=== PATIENT | female | born 1950 | race Caucasian/White ===

== ENCOUNTER → 2023-07-16 07:51 | Outpatient (REF) | payer OTHER, SELFPAY | LOC: HWRAD 07:51 | PROVIDERS: ATTENDING PHYSICIAN Nurse Practitioner Adult Health | DX: R59.9 Enlarged lymph nodes, unspecified (principal) | CPT/HCPCS: 76536 ==

== ENCOUNTER → 2024-02-17 10:39 | Outpatient (REF) | payer OTHER, SELFPAY | LOC: HWWDC 10:39 | PROVIDERS: ATTENDING PHYSICIAN Nurse Practitioner Adult Health | DX: Z12.31 Encounter for screening mammogram for malignant neoplasm of breast (principal) | CPT/HCPCS: 77063; 77067 ==

== ENCOUNTER 2024-02-25 01:05 | Observation (INO) | payer OTHER, SELFPAY ==
[2024-02-24 20:51] VITALS: BP 234/143
[2024-02-24 21:00] LABS: Glucose - Point of Care 121 mg/dl (70-99)
[2024-02-24 21:28] VITALS: BP 207/106
[2024-02-24 21:41] LABS: % Basophils 0.9 % (0-2); % Eosinophils 1.7 % (0-6); % Immature Granulocytes 0.3 % (0-0.5); % Lymphocytes 13.2 % (20.5-51.1); % Monocytes 11.2 % (1.7-9.3); % Neutrophils 72.7 % (42.2-75.2); Absolute Basophils 0.1 10^3/uL (0-0.2); Absolute Eosinophils 0.1 10^3/uL (0-0.7); Absolute Monocytes 0.9 10^3/uL (0.1-0.6); Absolute Neutrophils 5.7 10^3/uL (1.4-6.5); Hemoglobin 10.6 g/dL (12.0-16.0); Mean Corp Hgb Conc. 33.1 g/dL (33.0-37.0); Mean Corpuscular Hgb 28.4 pg (27.0-31.0); Mean Corpuscular Volume 85.8 fL (81.0-99.0); Mean Platelet Volume 9.1 fL (7.4-10.4); Nucleated Red Blood Cells % 0 %; Platelet Count 343 10^3/uL (130-400); Red Blood Cell Count 3.73 10^6/uL (4.20-5.40); Red Cell Dist. Width 13.2 % (11.5-14.5); White Blood Cell Count 7.8 10^3/uL (4.8-10.8)
[2024-02-24 21:45] VITALS: BP 186/95
[2024-02-24 22:00] VITALS: BP 185/84
[2024-02-24 22:03] LABS: ALT (SGPT) 17 U/L (0-35); AST (SGOT) 40 U/L (14-36); Albumin 4.8 g/dl (3.5-5.0); Alkaline Phosphatase 93 U/L (38-126); Blood Urea Nitrogen 21 mg/dl (7-17); Calcium 9.5 mg/dl (8.4-10.2); Carbon Dioxide 24 mmol/L (22-30); Chloride 104 mmol/L (98-107); Glucose 100 mg/dl (70-99); Magnesium 1.9 mg/dl (1.6-2.3); Potassium 4.2 mmol/L (3.5-5.1); Sodium 143 mmol/L (135-145); Total Bilirubin 0.4 mg/dl (0.2-1.3); Total Protein 7.8 g/dl (6.3-8.2); eGFR > 60.00
[2024-02-24 22:07] LABS: COVID-19 Antigen Negative (Negative); Troponin I < 0.012 ng/ml
--- NOTE | 2024-02-24 22:14 | ED.GENMED ---
History of Present Illness
General
Chief Complaint: Fatigue
Source: patient and family (Daughter)
Exam Limitations: none
Time Seen by Provider: 02/24/24 21:21
Nursing documentation reviewed up to this point in time: agreed with
History of Present Illness
History of Present Illness:
73-year-old female with past medical history as documented notable for COPD, hypertension, hyperlipidemia who presents to the emergency room for evaluation of generalized weakness. Patient reports that over the past 2 to 3 days she has had
generalized malaise�she describes feeling 'tired, no energy.' She says that tonight she was sitting on the couch and had abrupt onset of severe generalized weakness. She says that she was weak all over and felt uncomfortable walking down the
stairs. She says that this lasted about 30 minutes and then resolved and she feels much better now. She says she did not have any associated chest pain. She says she did not have any shortness of breath. She did not feel sweaty or nauseated.
She has had mild runny nose denies any recent coughing. Denies any fevers or chills recently. She has not had any dysuria, hematuria, change in urinary frequency. No diarrhea or vomiting and no abdominal pain. She does report that her neighbors
are sick. She currently lives independently in the community, ambulates without assistance and is independent for ADLs.
Past History
Past History
ED Past Medical History: COPD
ED Past Surgical History: Brain (brain aneurysm repair) and Other (Pneumothorax, Blebs removed from lung 2009)
Social History
Tobacco: Former smoker
Living: with family
Review of Systems
Review of Systems
All Other Systems: ROS reviewed and negative except as documented in HPI and ROS
Constitutional: Reports fatigue; Denies fever or chills
EENT: Reports runny nose; Denies sore throat
Respiratory: Denies cough or trouble breathing
Cardiac: Denies chest pain, palpitations or syncope
ABD/GI: Denies abdominal pain, nausea, vomiting or diarrhea
: Denies dysuria, frequency or flank pain
Musculoskeletal: Denies neck pain or back pain
Neurological: Reports weakness (Generalized); Denies dizzy, headache or numbness
Phy Exam
Physical Exam
Physical Exam:
General: Awake, alert, oriented x3; no acute distress
Head: Normocephalic, atraumatic
Eyes: Conjunctiva normal, sclera anicteric
Throat: Airway intact, handling secretions
Neck: Trachea midline, supple without meningismus
Lungs: Clear to auscultation bilaterally, no wheezing, rales, rhonchi
Heart: Regular rate and rhythm, no murmurs, gallops, or rubs
Abd: Soft, non distended, nontender
Neuro: Cranial nerves intact, speech fluid, no motor or sensory deficits
Skin: no rash
Extremities: No edema in extremities, equal pulses in all extremities
Scores
Heart Failure Risk
Heart Failure Risk Score: Not Applicable
Heart Score for Chest Pain Patients
STEMI patient?: Not applicable
Withdrawal Assessment of Alcohol
Withdrawal Assessment Completed?: Not applicable
Course
Orders/Labs/Results
Orders:
Orders
02/24/24 20:56
ECG [Electrocardiogram (*1)] Urgent
Reason for Study: Fatigue / Weakness
02/24/24 20:57
EKG- Treatment ONCE
02/24/24 21:35
COVID-19 Antigen Urgent
Source: Nasal Swab
Complete Blood Count/With Diff Urgent
Comprehensive Metabolic Panel Urgent
Magnesium Urgent
Troponin I Urgent
02/24/24 21:42
CR Chest - 2 Views Urgent
Comment:
Reason For Exam: weakness, fatigue--eval for pna
02/24/24 21:45
Influenza A+B Rapid Molecular Urgent
CHRISTY Source: Nasal Swab
Specimen Description:
02/24/24 22:44
CT Head W/o Iv Contrast Urgent
Comment:
Reason For Exam: severe hypertension, weakness
02/24/24 23:08
Electrocardiogram (*1) Urgent
Reason for Study: Fatigue / Weakness
EKG- Treatment ONCE
02/24/24 23:14
Urinalysis Reflex To Culture Urgent
Date Specimen was Collected: 02/24/24
Time Specimen was Collected: 22:54
02/25/24 00:30
Troponin I Urgent
Abnormal Lab Results
02/24/24 02/24/24
20:59 21:35
RBC 3.73 L 10^6/uL
(4.20-5.40)
Hgb 10.6 L g/dL
(12.0-16.0)
Hct 32.0 L %
(37.0-47.0)
Absolute Lymphs (auto) 1.0 L 10^3/uL
(1.2-3.4)
Absolute Monos (auto) 0.9 H 10^3/uL
(0.1-0.6)
Lymphocytes % 13.2 L %
(20.5-51.1)
Monocytes % 11.2 H %
(1.7-9.3)
BUN 21 H mg/dl
(7-17)
Glucose 100 H mg/dl
(70-99)
AST 40 H U/L
(14-36)
POC Glucose 121 H mg/dl
(70-99)
02/24/24 21:35
02/24/24 21:35
Vital Signs
Initial and Last Documented VS:
Initial Vital Signs
Temp Pulse Resp BP Pulse Ox
36.8 C 107 20 234/143 96
02/24/24 20:51 02/24/24 20:51 02/24/24 20:51 02/24/24 20:51 02/24/24 20:51
Last Documented Vital Signs
Temp Pulse Resp BP Pulse Ox
36.8 C 82 14 173/88 93
02/24/24 20:51 02/24/24 22:15 02/24/24 22:15 02/24/24 22:15 02/24/24 22:15
MDM/Problems Addressed
Differential Diagnosis Includes:
Differential diagnosis for generalized weakness is wide�but she has had generalized weakness for the past 2 to 3 days and then had an acute worsening for about 30 minutes tonight; differential could include viral syndrome, anemia, electrolyte
derangement, infection such as UTI or pneumonia, anginal equivalent, dysrhythmia, hypoglycemia among other things; low suspicion for stroke with generalized weakness but no focal symptoms
MDM/Problems Addressed:
73-year-old female presents for evaluation of malaise for the past few days with sudden worsening for about 30 minutes tonight. Symptoms have since resolved�still feels slightly more tired than her usual self but not as severe as 30-minute acute
episode where she felt so fatigued/weak that she was afraid to walk downstairs. She arrived to the emergency room severely hypertensive with a blood pressure of 234/143�this quickly improved to a blood pressure of 185/84 by my assessment. She was
tachycardic in triage to 107 again improved to 79 on recheck when she was brought back to a room. Rest of vitals are normal. Physical exam as above. Her EKG shows sinus rhythm with some lateral ST depressions and some subtle scooping of the ST
segments. Will place an IV send labs including CBC and a CMP. Check troponins. Check COVID and flu swabs. Will check chest x-ray and urinalysis. Check CT head given severe hypertension. Will monitor her on telemetry. Reassess after the above.
Initial labs reviewed: CBC shows stable anemia, CMP no clinically significant abnormalities. Troponin undetectable x 1�will trend repeat. COVID and flu negative. CT head reviewed by me no acute pathology. Chest x-ray reviewed by me unremarkable.
Concern with the abrupt onset of this episode combined with abnormal EKG that this could potentially be anginal equivalent. Will admit for trending of troponins, cardiology consultation. Monitor blood pressure overnight. Case discussed with
hospitalist.
Acute Exacerbation and/or Progression of Chronic Illness:
Acutely hypertensive improved without intervention continue to monitor but no emergent antihypertensives indicated
Acute Exacerbation and/or Progression of Chronic Illness: HTN
*Radiology
Radiology exam reviewed: preliminary read by ED provider
*Pulse Oximetry
Patient hypoxic: no
*EKG
Interpreted by ED Provider?: Yes
Heart Rate: 95
Rate: normal
Rhythm: sinus
[place]: normal axis
Interval: normal interval
QRS Pattern: normal QRS
Ischemia: non-specific ST changes
*Critical Care Note
Total Time (30-74mins, 75-104mins- exclusive of procedures): Not Applicable
Data Reviewed
Review of Other/Old Records Reveals: Labs and Records
Source: patient, records and family
Patient Management
Discussion with other providers: Hospitalist (Discussed with hospitalist)
Escalation/DeEscalation of care consider admission/obs:
Admission indicated
ED Attending Note
-
Portions of this chart may have been created with voice recognition software.� Occasional wrong word or��sound alike� substitutions may have occurred due to the inherent limitations of voice recognition software.
Discharge Plan
Departure
Patient Disposition: Admit
Date of Disposition: 02/24/24
Time of Disposition: 23:29
Admit to doctor: Devin
Presentation/result/management discussed w/ accepting MD/DO: Hospitalist
Discharge Problem:
Abnormal EKG, Weakness, Hypertensive urgency
Prescriptions:
No Action
pravastatin [Pravachol] 40 MG tablet
40 mg PO HS
tiotropium bromide [Spiriva with HandiHaler] 18 MCG capsule, w/inhalation device
18 mcg IH DAILY
psyllium husk (aspartame) [Metamucil Fiber Singles] 1 PACKET powder in packet
1 packet PO DAILY
aspirin 81 MG tablet,delayed release (DR/EC)
81 mg PO DAILY
pantoprazole 40 MG tablet,delayed release (DR/EC)
40 mg PO BID Qty: 60 0RF
Referrals:
Radha Carpenter CRNP [Family Provider] -
Interventions
Interventions:
*Risk Screen - Suicide Last Done: 02/24/24 21:34
*General Assessment Last Done: 02/24/24 20:51
*Neglect/Abuse Screening Last Done: 02/24/24 21:34
ED- Fall Risk Assessment Last Done: 02/24/24 21:37
*ED COVID-19 Vaccine History Last Done: 02/24/24 21:34
Discharge Date and Time
Print Language: KAZAKH
[2024-02-24 22:15] VITALS: BP 173/88
[2024-02-24 23:33] LABS: Urine Albumin Trace (Neg - Trace); Urine Bilirubin Negative (Negative); Urine Character Clear (Clear); Urine Color Yellow; Urine Glucose Negative (Negative); Urine Ketone Negative (Negative); Urine Leukocyte Trace (Negative); Urine Nitrite Negative (Negative); Urine Occult Blood Negative (Negative); Urine Urobilinogen Negative (Neg - 1+)
[2024-02-25] VITALS (24 sets, daily range): BP systolic 113–225; BP diastolic 51–171; BMI 26.6; BMI 26.5
[2024-02-25 00:09] LABS: Urine Bacteria Few (Negative); Urine Red Blood Cell 0-2 /HPF (0-2); Urine Squamous Cell >30 /LPF (Few)
--- NOTE | 2024-02-25 00:44 | HPS.HSE ---
Family Physician
-
Family Physician: Radha Carpenter
Chief Complaint
-
Weakness
History of Present Illness
Patient is a 73y F with PMH significant for COPD, Takotsubo's Cardiomyopathy and hypertension who presents to ED complaining of abrupt onset of 'weakness in my chest' this evening. Patient states that she was seated watching TV when she had
onset of this sensation. She denies any chest pain or pressure. No SOB. No N/V, diaphoresis, lightheadedness or dizziness. She has difficulty describing the sensation. Patient notes that she felt fatigued for the past week. No focal / specific
symptoms including fevers / chills, cough, GI or complaints.
On arrival to the ED, patient was significantly hypertensive with BP = 243/143. This has improved to 173/88 with no specific intervention.
Patient is currently resting comfortably in the ED and has no complaints.
Relevant recent history includes mammogram that was completed earlier today.
Patient states that she slept poorly last PM worrying about this and that she gets very anxious about having these done due to the discomfort, etc.
Medical History
Past Medical History
Past Medical History: Reports Other
Additional Past Medical History:
Hypertension
Cerebral Aneurysms
COPD
Spontaneous Pneumothorax x 3
Takotsubo's Cardiomyopathy (2010)
GERD
Past Surgical History: Reports Other
Additional Past Surgical History:
Aneurysm Coil
Craniotomy / Aneurysm Repair
ALMA Bleb Resection
Oophorectomy
Cardiac Cath - Normal Coronaries (2010)
Social History
Tobacco: Former Smoker (Quit smoking in 2008. Approx 40 pack years total use.)
Alcohol: Occasional
Family History
Family History: Other (Father: CAD Mother: HTN, DM)
Allergies / Home Medications
Allergies reflects when Allergies were last updated in [employer].
Home Medications with original date entered in [employer]
Allergy/Medication List:
Allergies
Allergy/AdvReac Type Severity Reaction Status Date / Time
No Known Allergies Allergy Verified 02/24/24 20:51
Home Medications
acetaminophen 500 mg tablet (Tylenol Extra Strength) 1,000 mg PO Q6HPRN PRN mild pain 02/24/24
calcium carbonate 1,000 mg PO DAILY 02/24/24
lisinopril 20 mg tablet 20 mg PO DAILY 02/24/24
pantoprazole 40 mg tablet,delayed release 40 mg PO DAILY 02/24/24
pravastatin 80 mg tablet 80 mg PO HS 02/24/24
therapeutic multivitamin 1 tab PO DAILY 02/24/24
tiotropium 2.5 mcg-olodaterol 2.5 mcg/actuation mist for inhalation (Stiolto Respimat) 2 puff inhalation R DAILY 02/24/24
Review of Systems
-
History Source: Patient
A 12 point ROS was completed and negative except as noted: Yes
Constitutional: Reports Fatigue; Denies Fever or Chills
EENT: Denies Sore Throat
Respiratory: Denies Cough or Trouble Breathing
Cardiac: Denies Chest Pain, Diaphoresis, Palpitations or Syncope
Abdomen/GI: Denies Abdominal Pain, Nausea, Vomiting or Diarrhea
: Denies Dysuria, Frequency or Flank Pain
Musculoskeletal: Denies Joint Pain or Edema
Neurological: Denies Dizzy or Headache
Psych: Reports Anxiety; Denies Depression
Physical Exam
Vital Signs
Vital Signs
Temp Pulse Resp BP Pulse Ox
98.3 F 82 14 173/88 93
02/24/24 20:51 02/24/24 22:15 02/24/24 22:15 02/24/24 22:15 02/24/24 22:15
Physical Exam
General: Other (73y F in no distress.)
HEENT: Moist mucous membranes
Respiratory: Clear; No Wheezes, Rales or Rhonchi
Cardiac: S1/S2, Regular Rhythm and Murmur (II/ ABRIL)
GI: Soft, Non Tender, Non Distended and Normal Bowel Sounds
Musculoskeletal: No Clubbing, No Cyanosis and No Edema
Neuro: AO x 3
Laboratory Results
-
02/24/24 21:35
02/24/24 21:35
Laboratory Results
Total Bilirubin 0.4 mg/dl (0.2-1.3) 02/24/24 21:35
AST 40 U/L (14-36) H 02/24/24 21:35
ALT 17 U/L (0-35) 02/24/24 21:35
Alkaline Phosphatase 93 U/L (38-126) 02/24/24:35
Troponin I < 0.012 ng/ml 02/24/24 21:35
Impression/Plan
-
A/P: Patient is a 73y F with PMH significant for COPD, Takotsubo's Cardiomyopathy and HTN who presents to ED complaining of 'weakness in the chest'.
Atypical Chest Discomfort
- Observe overnight for further evaluation and treatment.
- Initial EKG with non-specific ST changes in the lateral leads.
- Not present on most recent EKG - but patient has had similar changes morphology in the past.
- Patient is symptom-free at present in the ED.
- Initial troponin is undetectable.
- Follow x 3 sets total or to peak.
- Follow for any new / recurrent symptoms.
- Consider Cardiology evaluation if abnormal troponin, new EKG changes or any recurrent symptoms.
Hypertension
- Suspect that this evening's symptoms were related to marked hypertension.
- This improved significantly in the ED without intervention.
- Continue outpatient lisinopril.
- Add metoprolol BID for now and adjust regimen as needed for adequate control.
- IV Hydralazine as needed for very high BP.
COPD
- Stable. No complaints of cough, dyspnea, etc.
- Continue inhaled medications and follow for any changes.
Takotsubo's Cardiomyopathy
- In 2010. Most recent Echo (11/2022) was unremarkable with recovered EF.
Normocytic Anemia
- Unknown chronicity or etiology with no recent labs available for comparison.
- Check iron studies, B12, etc.
- No reported / noted blood loss per patient.
- Follow for changes in H&H.
DVT Prophylaxis: Lovenox
Code Status: Full
[2024-02-25 01:02] LABS: Troponin I 0.036 ng/ml
[2024-02-25] MEDS: APRESOLINE 5 MG IV ×2 (02:09→14:18)
--- NOTE | 2024-02-25 03:33 | PTCARENOTE ---
Received patient from ED financial administration officer. patient states she never had chest pain, rather weakness that is 'hard to explain'. Patients manual blood pressure was 224/94. messaged CRP. PRN hydralazine administered by this RN. Recheck blood pressure 185/86.
Patient resting in bed.
--- NOTE | 2024-02-25 03:41 | PTCARENOTE ---
Received patient from ED. patient states she never had chest pain, rather weakness that is 'hard to explain'. Patients manual blood pressure was 224/94. messaged CRP. PRN hydralazine administered by this RN. Recheck blood pressure 185/86. Patient
resting in bed.
[2024-02-25] MEDS: STRIVERDI RESPIMAT 2 PUFF INH (07:59)
[2024-02-25] MEDS: SPIRIVA RESPIMAT 2.5 MCG 2 PUFF INH (08:00)
[2024-02-25] MEDS: ZESTRIL 20 MG PO (08:15)
[2024-02-25] MEDS: PROTONIX 40 MG PO (08:15)
[2024-02-25] MEDS: TOPROL XL 25 MG PO ×2 (08:15→20:14)
[2024-02-25] MEDS: LOW STRENGTH ASPIRIN 81 MG PO (08:15)
[2024-02-25 08:20] LABS: Hematocrit 33.1 % (37.0-47.0); Mean Corp Hgb Conc. 33.2 g/dL (33.0-37.0); Mean Corpuscular Volume 87.3 fL (81.0-99.0); Red Blood Cell Count 3.79 10^6/uL (4.20-5.40); Red Cell Dist. Width 13.2 % (11.5-14.5); Troponin I 0.104 ng/ml; White Blood Cell Count 7.1 10^3/uL (4.8-10.8)
[2024-02-25 08:39] LABS: Blood Urea Nitrogen 17 mg/dl (7-17); Calcium 9.6 mg/dl (8.4-10.2); Carbon Dioxide 24 mmol/L (22-30); Chloride 105 mmol/L (98-107); Estimated Creatinine Clearance 49 ml/min; Glucose 103 mg/dl (70-99); HDL Cholesterol 84 mg/dl; Iron 23 ug/dl (37-170); LDL Cholesterol, Calculated 66 mg/dl; Potassium 4.5 mmol/L (3.5-5.1); Sodium 144 mmol/L (135-145); Total Cholesterol 163 mg/dl (50-199); Triglyceride 67 mg/dl (10-149); Very Low Density Lipoprotein 13 mg/dl (0-30); eGFR > 60.00
--- NOTE | 2024-02-25 08:47 | CON.CAR ---
Addendum entered and electronically signed by Jorje Ricketts MD 02/25/24 14:40:
I saw and examined the patient.
The Capacity Planning Manager's note was reviewed and I agree with the note.
Comment: Briefly, 73-year-old woman past medical history of nonischemic cardiomyopathy with recovered ejection fraction, pulmonic stenosis, hypertension, COPD who presented following an episode of weakness found to be hypertensive with rising
troponin.
At the time of my evaluation this morning the patient was not reporting any chest pain or pressure and no dyspnea
We reviewed that her troponin was uptrending
ECG with subtle ST depressions
Transthoracic echocardiogram today with normal left ventricular function and no obvious segmental wall motion abnormalities
Will refer for left heart catheterization given elevated troponin to assess for obstructive coronary disease as a cause of her symptoms
Original Note:
Consultation
Consultation Request
Date/Time Consultation Performed: 02/25/24
Requesting Provider: Dr. Sandeep Squires
Performing Provider: Tita Price PA-C for Dr. Ricketts
Reason for Consultation: elevated troponin
Medical History
-
Chief Complaint: weakness, hypertension
History of Present Illness:
Patient is a 73-year-old female with past medical history of remote Takotsubo cardiomyopathy with subsequent recovery in EF, pulmonary stenosis, hypertension, hypercholesterolemia, history of cerebral aneurysms resulting in craniotomy in 1998, COPD,
history of pneumothorax from bleb treated with pleurodesis, CKD stage III A who presented to [facility] due to generalized weakness. She reports yesterday she was resting watching TV when she became profoundly weak everywhere all of a
sudden. She reports she came to the ER for evaluation. Her blood pressure was noted to be very high on arrival. She reports she presented like this when she was initially diagnosed with hypertension, resulting in her being started on lisinopril.
She reports since then her blood pressures have been relatively well-controlled. Initial troponin negative, however now up to 0.1. Cardiology consulted for evaluation. No reports of chest pain, shortness of breath, palpitations, lightheadedness
or dizziness. She reports her activity has not been limited as an outpatient, although at baseline is not very strenuous. Denies recent NSAIDS, decongestants, new meds or supplements, changes in diet.
PMH:
Remote Takotsubo cardiomyopathy 2010 with subsequent recovery in EF by echo
Pulmonary regurgitation, mild
Hypertension
Hypercholesterolemia
History of cerebral aneurysms resulting in craniotomy in 1998
COPD
History of pneumothorax from bleb treated with pleurodesis
CKD stage III A
Past Medical History
Past Medical History: Other (in HPI)
Social History
Tobacco: Former Smoker
Alcohol: Other (2-3 beers on Fridays)
Living: Alone
Employment: Retired
Family History
Family History: Other (CVA in sister)
Allergies / Home Medications
Allergy/AdvReac Type Severity Reaction Status Date / Time
No Known Allergies Allergy Verified 02/24/24 20:51
�Medication �Instructions �Recorded �Confirmed �Type
acetaminophen 500 mg tablet 1,000 mg PO Q6HPRN PRN mild pain 02/24/24 02/24/24 History
(Tylenol Extra Strength)
calcium carbonate 1,000 mg PO DAILY 02/24/24 02/24/24 History
lisinopril 20 mg tablet 20 mg PO DAILY 02/24/24 02/24/24 History
pantoprazole 40 mg tablet,delayed 40 mg PO DAILY 02/24/24 02/24/24 History
release
pravastatin 80 mg tablet 80 mg PO HS 02/24/24 02/24/24 History
therapeutic multivitamin 1 tab PO DAILY 02/24/24 02/24/24 History
tiotropium 2.5 mcg-olodaterol 2.5 2 puff inhalation R DAILY 02/24/24 02/24/24 History
mcg/actuation mist for inhalation
(Stiolto Respimat)
Review of Systems
-
History Source: Patient
All other systems: Negative unless noted
Physical Exam
Vital Signs
Temp Pulse Resp BP Pulse Ox
98.6 F 89 16 185/86 95
02/25/24 03:18 02/25/24 08:09 02/25/24 08:09 02/25/24 03:18 02/25/24 08:09
Lab Results
02/25/24 07:25
02/25/24 07:25
Troponin I 0.104 ng/ml H* D 02/25/24 07:25
Physical Exam
General: No Apparent Distress and Comfortable
HEENT: Normocephalic, Anicteric and Moist Mucous Membranes
Respiratory: Clear and Non Labored Respirations
Cardiac: S1/S2, Regular Rhythm and Other (tachycardic at times)
GI: Soft, Non Tender, Non Distended and Normal Bowel Sounds
Musculoskeletal: No Clubbing, No Cyanosis and No Edema
Skin: Warm and Dry
Neuro: AO x 3
Impression / Plan
-
Primary Tech Brazer Tester: Dr. EMMA Liao
Assessment:
Presentation with acute onset of diffuse weakness
Elevated troponin
Hypertensive emergency
Sinus tachycardia
Remote Takotsubo cardiomyopathy 2010 with subsequent recovery in EF by echo
Pulmonary regurgitation, mild
Hypertension
Hypercholesterolemia
History of cerebral aneurysms s/p clipping and coiling with left craniotomy in 1998
COPD
History of pneumothorax from bleb treated with pleurodesis
CKD stage III A
Anemia
ECHO 12/17/22: EF 55 to 60%, mild concentric LVH, dilated pulmonary artery measuring 4.6 cm, mild [place]
Plan:
-Patient presents with acute onset of diffuse weakness
-head CT negative for acute abnormalities
-On arrival noted to be markedly hypertensive
-Troponin uptrending, most recent 0.1. Patient without complaints of chest discomfort or shortness of breath. Trend to peak
-EKGs SR with NSSTS
-CXR without acute pulm abnormality
-Check urgent echo given history of remote Takotsubo cardiomyopathy. She reports in past echo caused her significant discomfort
-Consider cardiac catheterization this admission, last from 2010 with nonobstructive coronary atherosclerosis and findings consistent with apical ballooning syndrome or Takotsubo cardiomyopathy. NPO for now
-also noted to have sinus tachycardia on review of tele. toprol 25mg BID added by primary service. IV lopressor PRN ordered by me
-continue asa
-check CVE. continue pravastatin
-continue OP lisinopril
-consider evaluation to rule out PE as could be alternative etiology of patient symptoms
Data Reviewed
-
EKG: Tracing Personally Visualized and interpreted
Radiology: Report Reviewed by me
CT Scan: Report Reviewed by me
Medical Tests (Nuc Med, Echo etc): Report Reviewed by me
Labs: Labs Reviewed by me
Old Records: Reviewed
[2024-02-25 08:49] LABS: Percent Saturation 5 % (20-50); Total Iron Binding Capacity 393 ug/dl (265-497)
[2024-02-25 09:01] LABS: TSH Reflex To Free T4 1.57 uIU/ml (0.47-4.68)
[2024-02-25 09:19] LABS: Hepatitis C Antibody Negative (Negative)
[2024-02-25 09:20] LABS: Vitamin B12 900 pg/ml (239-931)
--- NOTE | 2024-02-25 09:45 | CARDSERVLU ---
Echocardiogram with Lumason completed after protocol screening completed. Allergies verified.
Patent IV site: __existing site 22P L hand___
IV site flushed with 0.9% NaCl pre and post administration.
Diluted bolus method utilized to enhance visualization of ventricular newsome.
Total volume given: _2.5___ mL
Patient tolerated all procedures well without complications.
[2024-02-25] MEDS: LOPRESSOR 5 MG IV (11:34)
[2024-02-25] MEDS: LOW STRENGTH ASPIRIN 324 MG PO (11:43)
[2024-02-25 13:03] LABS: ACT-LR - POC 261 Seconds (116-155)
--- NOTE | 2024-02-25 13:22 | ITS.CL.CATH ---
Computer Lab Aide - Catheterization
Cardiac Catheterization
Procedure Report:
LEFT HEART CATHETERIZATION
Date of Procedure: February 25, 2024
Referring: Dr. Jorje Ricketts
PROCEDURES:
1. Left heart catheterization with coronary and single-plane left ventriculography
2. Hemodynamic assessment of LAD and diagonal with [place] Omni wire. The IFR in both vessels measured above the ischemic threshold as described below
INDICATION: This is a 73-year-old female with a past medical history notable for a Takotsubo's cardiomyopathy, pulmonic valve stenosis, hypertension, and hyperlipidemia. She presented to [facility] for evaluation of generalized weakness
and was noted to have mildly elevated troponin for which she is now referred for coronary angiography
ACCESS: Right common femoral artery, 6 Finnish sheath. No palpable pulse in the right radial artery and the left radial artery has peripheral IV access and is a very difficult IV stick. Therefore, the decision was made to proceed with accessing the
right common femoral artery using ultrasound guidance and a 6 Finnish sheath was placed
HEMODYNAMICS : (mmHg)
AO (s/d) : 189/86, 129
LV (s/d) : 190/16
LVEDP : 25
CORONARY FINDINGS
DOMINANCE: Right
LEFT MAIN: Normal
LEFT ANTERIOR DESCENDING: The LAD is a moderate caliber vessel that arises normally from the left main and runs in the anterior interventricular groove. The mid LAD near the origin of the first diagonal branch has an eccentric calcified plaque.
The LAD tapers to a smaller caliber vessel as it approaches the apex. No focal high-grade obstructive stenosis is noted. The mid LAD beyond the large first diagonal branch has a 30% stenosis. The iFR in the distal LAD measures above the ischemic
threshold at 0.96 x 3. The Omni wire was redirected into the first diagonal branch and the iFR serially measured above the ischemic threshold at 0.94, 0.95, 0.95
CIRCUMFLEX: The circumflex is a medium caliber nondominant vessel that supplies a single sizable obtuse marginal branch that bifurcates in its midportion to 2 medium caliber obtuse marginal branches.
RIGHT CORONARY ARTERY: The right coronary artery is a very large caliber dominant vessel that is widely patent. The PDA is a large supplying the majority of the inferior wall to the inferior apex. The posterolateral branch is a medium caliber
vessel.
VENTRICULOGRAPHY: Left ventriculography is performed in an MACDONALD projection. The digital single-plane left ventricular ejection fraction is visually estimated at 65% with focal apical hypokinesis noted
HEMODYNAMIC ASSESSMENT OF THE LAD AND DIAGONAL WITH A [employer] OMNI WIRE: The origin of the left main was cannulated with a 6 Fr JL 4 guide catheter. Intravenous heparin was administered and the ACT was followed during the procedure. Two hundred
micrograms of intracoronary nitroglycerin was given through the guide catheter. A [place] Omni wire was advanced to the guide catheter tip and normalized to guide catheter pressure. The Omni wire was then carefully manipulated across the stenosis
in the mid LAD and into the distal vessel with the iFR serially measuring above the ischemic threshold at 0.96, 0.96, and 0.96. The Omni wire was withdrawn and redirected to a large first diagonal branch where the iFR serially measured above the
ischemic threshold at 0.94, 0.95, and 0.95. The Omni wire was then withdrawn to the guide catheter tip where the resting Pd/Pa measured 0.99.
RADIATION SUMMARY: Fluoro Time (min): 5.0, Dose (mGy): 300.4, DAP (Gy.cm2) : 23.6
Closure Device: None
CONCLUSIONS
1. Elevated troponin with no obvious culprit stenosis. Moderate coronary calcification and mild stenotic segment in the mid LAD with the iFR serially measuring above the ischemic threshold.
2. Preserved LV systolic function with focal apical hypokinesis
RECOMMENDATIONS
1. Poorly controlled hypertension
2. Continue aspirin
3. Change pravastatin to atorvastatin 80 mg daily
4. Begin amlodipine 5 mg daily with titration as blood pressure tolerates. Increase lisinopril to 40 mg daily and continue oral beta-jennifer which was initiated during this hospitalization
Copy to: Dr. Rupesh Liao
[2024-02-25 13:23] LABS: Troponin I 0.072 ng/ml
[2024-02-25] MEDS: NORVASC 5 MG PO (13:35)
[2024-02-25] MEDS: NSS 1000 IV (13:37)
[2024-02-25 14:06] LABS: ACT-LR - POC 161 Seconds (116-155)
--- NOTE | 2024-02-25 14:50 | W.PN.HOSP.TC ---
Today's Communication/Plan
-
see bold
Assessment / Plan
Assessment / Plan
73y F with PMH significant for COPD, Takotsubo's Cardiomyopathy and HTN who presents to ED complaining of 'weakness in the chest'.
Atypical Chest Discomfort
- Initial EKG with non-specific ST changes in the lateral leads, troponins minimally elevated, now downtrending
- Patient denies ever having chest discomfort, she reports coming to the ER for generalized weakness
- Appreciate cardiology input, cardiac catheterization negative for obvious culprit stenosis
- Pravastatin changed to atorvastatin 80 mg every afternoon
Hypertensive emergency
- Suspect that patient's symptoms were related to marked hypertension.
- This improved significantly in the ED without intervention.
- Metoprolol 25 mg twice a day was added upon admission, cardiology added amlodipine 5 mg daily 02/24
- Continue lisinopril 20 mg daily
COPD
- Continue inhaled medications and follow for any changes.
Takotsubo's Cardiomyopathy
- In 2010. Most recent Echo (11/2022) was unremarkable with recovered EF.
Normocytic Anemia
- Iron low, will check ferritin
- Trend hemoglobin
DVT Prophylaxis: Lovenox
Code Status: Full
Physical Exam
General: No acute distress
HEENT: Normocephalic, Atraumatic, EOMI, MMM
Respiratory: Clear to Auscultation bilaterally
Cardiac: Normal S1/S2, Regular Rate and Rhythm
GI: Soft, Nontender, Nondistended, Normal Bowel Sounds
Extremities: No Clubbing, Cyanosis, or Edema
Neuro: Nonfocal/Grossly Intact
Psych: Calm, Cooperative
Derm: No Visible lesions
Anticipated Discharge: Within 24 hours
Subjective/Interval History
-
Date of Service: February 25, 2024
Patient denies chest pain, denies shortness of breath. No lightheadedness. She reports coming in with generalized weakness, and that has resolved.
Objective Data
-
Labs:
Laboratory Results
02/24/24 02/25/24
21:35 07:25
WBC 7.8 Pending
Hgb 10.6 L Pending
Hct 32.0 L Pending
Plt Count 343 Pending
Sodium 143 Pending
Potassium 4.2 Pending
Chloride 104 Pending
Carbon Dioxide 24 Pending
BUN 21 H Pending
Creatinine 0.9 Pending
Glucose 100 H Pending
Calcium 9.5 Pending
Total Bilirubin 0.4
AST 40 H
ALT 17
Alkaline Phosphatase 93
Vital Signs:
Vital Signs
Temp Pulse Resp BP Pulse Ox
98.6 F 102 18 185/86 93
02/25/24 03:18 02/25/24 03:18 02/25/24 03:18 02/25/24 03:18 02/25/24 03:18
--- NOTE | 2024-02-25 15:28 | PTCARENOTE ---
Patient received from laboratory supervisor. R femoral 4x4 and tegaderm CDI. Site around is ecchymotic. VSS. + pulses.
--- NOTE | 2024-02-25 15:48 | CM ---
Reviewed the chart notes and spoke with the patient at the bedside. Patient just returned to room from having a heart cath. The patient is admitted under observational status. The [facility]ATES letter was provided and explained. The patient had no
questions with regards to the letter.
The patient resides alone in a second floor condo. The patient reports on DME/VN/SNF in the past. The patient confirmed her pharmacy of choice is the [facility]. CM continues to be available to patient/family and is monitoring
medical plan for needs at discharge.
Plan: Discharge to home when medically stable. No needs anticipated.
[2024-02-25 16:19] LABS: Ferritin 8.8 ng/ml (11.1-264.0)
[2024-02-25] MEDS: LIPITOR 80 MG PO (17:23)
[2024-02-25] MEDS: LOVENOX 40 MG SC (17:23)
[2024-02-26 03:23] VITALS: BP 120/52
[2024-02-26] MEDS: SPIRIVA RESPIMAT 2.5 MCG 2 PUFF INH (07:27)
[2024-02-26] MEDS: STRIVERDI RESPIMAT 2 PUFF INH (07:27)
--- NOTE | 2024-02-26 07:51 | W.PN.CARDCBS ---
Addendum entered and electronically signed by Jorje Ricketts MD 02/26/24 17:37:
I saw and examined the patient.
The Cto's note was reviewed and I agree with the note.
Patient seen and examined on morning rounds
Comment: Briefly, 73-year-old woman PMHx HTN and recovered NICM presenting with chest discomfort and hypertension found to have elevated troponin
Underwent left heart catheterization yesterday 02/25/2024 and was found to have nonobstructive coronary disease
Suspect troponin elevation was related to hypertensive emergency
Norvasc has been added for tighter blood pressure control
Patient is asymptomatic today and anxious to be discharged home
On exam she does have significant ecchymosis of the right groin however no evidence of aneurysm or pseudoaneurysm by ultrasound
Stable for discharge from my perspective, outpatient follow-up has been arranged
Rest per Tita Price
Original Note:
Today's Communication / Plan
-
continue asa, pravastatin
BPs improved on lisinopril, toprol, norvasc
follow groin site
OP cardiac follow up arranged
Impression / Plan
-
Primary Option Trader: Dr. EMMA Liao
Assessment:
Presentation with acute onset of diffuse weakness
Elevated troponin
Hypertensive emergency
Sinus tachycardia
Remote Takotsubo cardiomyopathy 2010 with subsequent recovery in EF by echo
Pulmonary regurgitation, mild
Hypertension
Hypercholesterolemia
History of cerebral aneurysms s/p clipping and coiling with left craniotomy in 1998
COPD
History of pneumothorax from bleb treated with pleurodesis
CKD stage III A
Anemia
ECHO 12/17/22: EF 55 to 60%, mild concentric LVH, dilated pulmonary artery measuring 4.6 cm, mild MD
ECHO 02/25/24: EF 60 to 65%, no gross regional wall motion abnormalities noted, PAP 33 mmHg, pulmonic sclerosis without stenosis, mild to moderate MD, dilated pulmonary artery measuring up to 5.1 cm
Plan:
-Patient presented with acute onset of diffuse weakness
-head CT negative for acute abnormalities
-trop peaked at 0.1
-echo with results as above, discussed with patient 11/6
-s/p cath 02/25/24 with nonobstructive CAD, mod mid LAD stenosis with serially negative iFR. plan for medical mgmt. results reviewed with patient 11/6
-elevated troponin felt to be nonischemic myocardial injury secondary to poorly controlled hypertension
-continue OP lisinopril 20mg daily. toprol and norvasc added this admission. BPs much improved this AM
-continue asa. noted to have groin ecchymoses at access site. nontender to palpation, no firm areas. would have low threshold to US if with pain or worsening of ecchymoses. hgb stable at 11.
-LDL 66. continue pravastatin
-OP cardiac follow up arranged. patient eager for DC
Progress Note - Option Trader
Subjective
Date of Service: February 26, 2024
denies CP, SOB, palpitations. denies groin pain. reports did not sleep well
Objective
Labs:
02/25/24 07:25
Labs
Hgb 11.0 g/dL (12.0-16.0) L 02/25/24 07:25
Hct 33.1 % (37.0-47.0) L 02/25/24 07:25
Plt Count Not Reportable 02/25/24 07:25
Sodium 144 mmol/L (135-145) 02/25/24 07:25
Potassium 4.5 mmol/L (3.5-5.1) 02/25/24 07:25
BUN 17 mg/dl (7-17) 02/25/24 07:25
Creatinine 0.9 mg/dL (0.6-1.0) 02/25/24 07:25
Glucose 103 mg/dl (70-99) H 02/25/24 07:25
Troponins
02/24/24 02/25/24 02/25/24
21:35 00:14 07:25
Troponin I < 0.012 0.036 H* D 0.104 H* D
02/25/24
12:04
Troponin I 0.072 H* D
Vital Signs and I&O:
Vital Signs
Temp Pulse Resp BP Pulse Ox
97.8 F 88 18 120/52 96
02/26/24 03:23 02/26/24 07:37 02/26/24 07:37 02/26/24 03:23 02/26/24 07:37
Vital Signs
Temp Pulse Resp BP Pulse Ox
97.8 F 88 18 120/52 96
02/26/24 03:23 02/26/24 07:37 02/26/24 07:37 02/26/24 03:23 02/26/24 07:37
Intake & Output
02/23/24 02/24/24 02/25/24 02/26/24
07:59 07:59 07:59 07:59
Intake Total 240 / 240
Balance 240 / 240
Physical Exam
Physical Exam
GEN: No distress, awake, alert, oriented x3
HEENT: supple, anicteric, mmm, eomi
LUNGS: CTA B/L, no wheezes/rales
CV: Reg, S1/S2, 1/6 syst LSB
ABD: soft, BS+, NT/ND
EXT: No cyanosis, clubbing, edema
NEURO: Gross non-focal
SKIN: Warm, pink, dry. No rash. Ecchymoses of R groin site, soft, nontender to palpation
[2024-02-26 07:55] VITALS: BP 156/74
[2024-02-26] MEDS: ZESTRIL 20 MG PO (08:32)
[2024-02-26] MEDS: NORVASC 5 MG PO (08:32)
[2024-02-26] MEDS: LOW STRENGTH ASPIRIN 81 MG PO (08:32)
[2024-02-26] MEDS: TOPROL XL 25 MG PO (08:32)
[2024-02-26] MEDS: PROTONIX 40 MG PO (08:32)
--- NOTE | 2024-02-26 08:42 | W.PN.HOSP.TC ---
Today's Communication/Plan
-
Discharge after right groin ultrasound if cleared by cardiology
Assessment / Plan
Assessment / Plan
73y F with PMH significant for COPD, Takotsubo's Cardiomyopathy and HTN who presents to ED complaining of 'weakness in the chest'.
Atypical Chest Discomfort
- Initial EKG with non-specific ST changes in the lateral leads, troponins minimally elevated, now downtrending
- Patient denies ever having chest discomfort, she reports coming to the ER for generalized weakness
- Appreciate cardiology input, cardiac catheterization negative for obvious culprit stenosis
- Pravastatin changed to atorvastatin 80 mg every afternoon
Hypertensive emergency
- Suspect that patient's symptoms were related to marked hypertension.
- This improved significantly in the ED without intervention.
- Metoprolol 25 mg twice a day was added upon admission, cardiology added amlodipine 5 mg daily 02/24
- Continue lisinopril 20 mg daily
- Blood pressure now controlled, will continue these medications upon discharge
Right groin ecchymosis
-Check right groin ultrasound
COPD
- Continue inhaled medications and follow for any changes.
Takotsubo's Cardiomyopathy
- In 2010. Most recent Echo (11/2022) was unremarkable with recovered EF.
Normocytic Anemia
- B12 normal, iron low, will check ferritin
- Trend hemoglobin
DVT Prophylaxis: Lovenox
Code Status: Full
Physical Exam
General: No acute distress
HEENT: Normocephalic, Atraumatic, EOMI, MMM
Respiratory: Clear to Auscultation bilaterally
Cardiac: Normal S1/S2, Regular Rate and Rhythm
GI: Soft, Nontender, Nondistended, Normal Bowel Sounds
Extremities: No Clubbing, Cyanosis, or Edema
Neuro: Nonfocal/Grossly Intact
Psych: Calm, Cooperative
Derm: No Visible lesions
Anticipated Discharge: Today
Subjective/Interval History
-
Date of Service: February 25, 2024
Patient denies weakness, no chest pain. No shortness of breath. No fever, no vomiting.
Objective Data
-
Labs:
Laboratory Results
02/25/24
07:25
WBC 7.1
Hgb 11.0 L
Hct 33.1 L
Plt Count Not Reportable
Sodium 144
Potassium 4.5
Chloride 105
Carbon Dioxide 24
BUN 17
Creatinine 0.9
Glucose 103 H
Calcium 9.6
Vital Signs:
Vital Signs
Temp Pulse Resp BP Pulse Ox
98.4 F 67 16 156/96 100
02/25/24 11:48 02/25/24 14:32 02/25/24 14:32 02/25/24 14:32 02/25/24 14:41
[2024-02-26 08:46] LABS: Blood Urea Nitrogen 16 mg/dl (7-17); Calcium 9.2 mg/dl (8.4-10.2); Carbon Dioxide 24 mmol/L (22-30); Chloride 107 mmol/L (98-107); Estimated Creatinine Clearance 49 ml/min; Glucose 85 mg/dl (70-99); Sodium 141 mmol/L (135-145); eGFR > 60.00
[2024-02-26 11:05] VITALS: BP 124/62
--- NOTE | 2024-02-26 11:57 | W.DCSUMMARY ---
Discharge Summary
Discharge Data
Date of Admission: 02/25/24
Date of Discharge: 02/26/24
-
Pending Results: No
Hospital Course
Discharge diagnosis:
Hypertensive emergency
Atypical chest discomfort
Right groin ecchymosis/hematoma
Chronic obstructive pulmonary disease
History of Takotsubo's cardiomyopathy
Chronic iron deficiency anemia
Consults: Cardiology
02/25/24 Cardiac catheterization:
1. Elevated troponin with no obvious culprit stenosis. Moderate coronary calcification and mild stenotic segment in the mid LAD with the iFR serially measuring above the ischemic threshold.
2. Preserved LV systolic function with focal apical hypokinesis
Echo:
Normal left ventricular size, wall thickness and systolic function. No gross
regional wall motion abnormalities are seen. LV ejection fraction is 60-65% by
Pastrana's method of discs. Normal diastolic function.
Normal right ventricular size and function.
Estimated pulmonary artery pressure of 33 mmHg assuming a right atrial pressure
of 3 mmHg.
Pulmonic sclerosis without stenosis. Mild to moderate pulmonic regurgitation.
Dilated pulmonary artery, measuring up to 5.1 cm.
Compared to prior study dated 12/09/2022, pulmonary artery appears more dilated,
previously measured 4.6 cm
Right Groin US:
Unremarkable duplex examination of the right groin.
No evidence of pseudoaneurysm or AV fistula. No hematoma right groin.
Hospital course:
73-year-old female with a past medical history of hypertension, hyperlipidemia, and GERD presented with generalized weakness of her whole body and chest, was found to have hypertensive emergency. Her blood pressure in the ER was as high as 243/143,
then came down to 173/88 without interventions.
Patient was continued on lisinopril 20 mg daily. She was started on metoprolol succinate 25 mg twice a day, and amlodipine 5 mg daily. Her blood pressure became controlled on this regimen.
Patient was seen in conjunction with cardiology. She had told the ER that she had chest weakness upon admission. She denied that to me. She had minimally elevated troponin. Cardiac catheterization was negative for obvious culprit stenosis.
Cardiology recommends changing her pravastatin to a atorvastatin 80 mg at bedtime.
Patient's hospital course was complicated by right groin hematoma from her cardiac catheterization. Groin ultrasound was negative for pseudoaneurysm.
Patient was also found to have iron deficiency anemia. She will be discharged on iron supplements to be taken with vitamin C for absorption since she is on Protonix.
She is medically stable for discharge. She needs to follow-up with cardiology in the office in 2-3 weeks, and her primary care doctor in 1 week.
Disposition: Home self-care
Discharge planning: Required 42 min
Discharge Plan
-
Patient Disposition: Home (Routine Discharge)
Discharge Diagnosis/Procedures: Hypertensive emergency, status post cardiac catheterization, right groin ecchymosis
Condition: Good
Diet: Low Cholesterol and 2 Gram Sodium
Activity: As tolerated
Driving Restrictions: No driving for 24 hours
Activity Restrictions/Additional Instructions:
Take your blood pressure daily and record it. Please bring this record with you to your next appointment on 03/13/24.
Follow-up with your primary care doctor in 1 week, and cardiology as directed.
Stand Alone Forms: DC Instructions- Cath/EP Lab
Referrals:
Radha Carpenter CRNP [Family Provider] - in one week
Rose Munoz CRNP [Specified Professional Personl] - 03/13/24 1:40 pm
Prescriptions:
New
atorvastatin 80 mg Tablet
80 mg PO QPM Qty: 30 0RF
aspirin 81 mg Tablet,Chewable
81 mg PO DAILY Qty: 30 0RF
amlodipine 5 mg Tablet
5 mg PO DAILY Qty: 30 0RF
metoprolol succinate 25 mg Tablet Extended Release 24 Hr
25 mg PO BID Qty: 60 0RF
ferrous sulfate 325 mg (65 mg iron) tablet
325 mg PO HS Qty: 30 0RF
ascorbic acid (vitamin C) 500 mg tablet
500 mg PO HS 30 Days Qty: 30 0RF
Continued
lisinopril 20 mg Tablet
20 mg PO DAILY
therapeutic multivitamin Tablet
1 tab PO DAILY
acetaminophen [Tylenol Extra Strength] 500 mg Tablet
1,000 mg PO Q6HPRN PRN (Reason: mild pain)
calcium carbonate 500 mg calcium (1,250 mg) Tablet
1,000 mg PO DAILY
Stiolto Respimat 2.5-2.5 mcg/actuation Mist
2 puff INHALATION R DAILY
pantoprazole 40 MG tablet,delayed release (DR/EC)
40 mg PO DAILY
Discontinued
pravastatin 80 mg Tablet
80 mg PO HS
Discharge Orders:
Discharge Patient (As Directed); Ordered 02/26/24
Ordered By: Momo Squires
Discharge Date and Time
Discharge Date/Time: 02/26/24 18:11
Print Language: CAMBODIAN
--- NOTE | 2024-02-26 14:46 | CM ---
Reviewed the chart notes and spoke with the patient at the bedside. Patient is being discharged to home today. Family will provide transportation.
Plan: Home with no needs.
[2024-02-26 15:00] VITALS: BP 136/63
[2024-02-26] MEDS: LIPITOR 80 MG PO (17:01)
[2024-02-26] MEDS: LOVENOX SC (17:01)
== END 2024-02-26 18:11 | disposition home or self-care (01) ==
LOC: 2 NORTH 01:05
PROVIDERS: Nurse Practitioner Adult Health; Physician Assistant; ADMITTING PHYSICIAN Hospitalist; ATTENDING PHYSICIAN Family Medicine; EMERGENCY PHYSICIAN Emergency Medicine; FAMILY PHYSICIAN Nurse Practitioner Adult Health; OTHER PHYSICIAN Internal Medicine Cardiovascular Disease
DX: R07.89 Other chest pain (principal); R53.83 Other fatigue; R00.0 Tachycardia, unspecified; I16.1 Hypertensive emergency; N18.31 Chronic kidney disease, stage 3a; I13.10 Hypertensive heart and chronic kidney disease without heart failure, with stage 1 through stage 4 chronic kidney disease, or unspecified chronic kidney disease; J44.9 Chronic obstructive pulmonary disease, unspecified; E78.00 Pure hypercholesterolemia, unspecified; R53.1 Weakness; K21.9 Gastro-esophageal reflux disease without esophagitis; J84.10 Pulmonary fibrosis, unspecified; D64.9 Anemia, unspecified; R94.31 Abnormal electrocardiogram [ECG] [EKG]; R79.89 Other specified abnormal findings of blood chemistry; S30.1XXA Contusion of abdominal wall, initial encounter; X58.XXXA Exposure to other specified factors, initial encounter; I37.1 Nonrheumatic pulmonary valve insufficiency; I67.82 Cerebral ischemia; G31.9 Degenerative disease of nervous system, unspecified; Z87.891 Personal history of nicotine dependence; Z83.3 Family history of diabetes mellitus; Z82.49 Family history of ischemic heart disease and other diseases of the circulatory system; Z11.52 Encounter for screening for COVID-19; Z60.2 Problems related to living alone
CPT/HCPCS: 70450; 71046; 80048; 80053; 80061; 81003; 81015; 82607; 82728; 82962; 83540; 83550; 83735; 84443; 84484; 85025; 85027; 85347; 86803; 87502; 87811; 93005; 93306; 93458; 93799; 93926; 94640; 99285; C1769; C1894; Q9950; Q9967

== ENCOUNTER → 2024-06-05 10:57 | Outpatient (REF) | payer OTHER, SELFPAY ==
[2024-06-05 12:40] LABS: % Basophils 1.4 % (0-2); % Eosinophils 4.7 % (0-6); % Immature Granulocytes 0.1 % (0-0.5); % Lymphocytes 17.9 % (20.5-51.1); % Monocytes 9.4 % (1.7-9.3); % Neutrophils 66.5 % (42.2-75.2); Absolute Basophils 0.1 10^3/uL (0-0.2); Absolute Eosinophils 0.3 10^3/uL (0-0.7); Absolute Lymphocytes 1.3 10^3/uL (1.2-3.4); Absolute Monocytes 0.7 10^3/uL (0.1-0.6); Absolute Neutrophils 4.7 10^3/uL (1.4-6.5); Hematocrit 39.4 % (37.0-47.0); Hemoglobin 12.9 g/dL (12.0-16.0); Mean Corp Hgb Conc. 32.7 g/dL (33.0-37.0); Mean Corpuscular Hgb 30.8 pg (27.0-31.0); Mean Platelet Volume 9.9 fL (7.4-10.4); Nucleated Red Blood Cells % 0 %; Platelet Count 296 10^3/uL (130-400); Red Blood Cell Count 4.19 10^6/uL (4.20-5.40); Red Cell Dist. Width 13.2 % (11.5-14.5); White Blood Cell Count 7.1 10^3/uL (4.8-10.8)
[2024-06-05 13:43] LABS: ALT (SGPT) 122 U/L (0-35); AST (SGOT) 159 U/L (14-36); Albumin 4.6 g/dl (3.5-5.0); Alkaline Phosphatase 512 U/L (38-126); Blood Urea Nitrogen 22 mg/dl (7-17); Calcium 9.7 mg/dl (8.4-10.2); Carbon Dioxide 30 mmol/L (22-30); Chloride 101 mmol/L (98-107); Glucose 87 mg/dl (70-99); HDL Cholesterol 76 mg/dl; Iron 107 ug/dl (37-170); LDL Cholesterol, Calculated 31 mg/dl; Percent Saturation 30 % (20-50); Potassium 4.6 mmol/L (3.5-5.1); Sodium 140 mmol/L (135-145); Total Bilirubin 0.9 mg/dl (0.2-1.3); Total Cholesterol 126 mg/dl (50-199); Total Iron Binding Capacity 348 ug/dl (265-497); Total Protein 7.5 g/dl (6.3-8.2); Triglyceride 99 mg/dl (10-149); Very Low Density Lipoprotein 19 mg/dl (0-30); eGFR > 60.00
[2024-06-05 14:01] LABS: Ferritin 28.8 ng/ml (11.1-264.0)
== END ==
LOC: HWLAB 10:57
PROVIDERS: ATTENDING PHYSICIAN Nurse Practitioner Adult Health
DX: D50.9 Iron deficiency anemia, unspecified (principal); E78.00 Pure hypercholesterolemia, unspecified
CPT/HCPCS: 36415; 80053; 80061; 82728; 83540; 83550; 85025

== ENCOUNTER → 2024-06-15 11:17 | Outpatient (REF) | payer OTHER, SELFPAY ==
[2024-06-15 15:54] LABS: ALT (SGPT) 43 U/L (0-35); AST (SGOT) 48 U/L (14-36); Albumin 4.2 g/dl (3.5-5.0); Alkaline Phosphatase 312 U/L (38-126); Alkaline Phosphatase, Total 312 U/L (38-126); Direct Bilirubin 0.3 mg/dl (0.0-0.4); GGTP 251 U/L (12-43); Total Bilirubin 0.6 mg/dl (0.2-1.3); Total Protein 7.3 g/dl (6.3-8.2)
[2024-06-15 21:27] LABS: Hepatitis B Surface Antigen Negative (Negative)
[2024-06-15 21:45] LABS: Hepatitis A Antibody, Total Positive (Negative); Hepatitis C Antibody Negative (Negative)
[2024-06-16 09:33] LABS: Alk Phos After Heat 210; Alkaline Phosphatase Percent 67.31
== END ==
LOC: HWLAB 11:17
PROVIDERS: ATTENDING PHYSICIAN Nurse Practitioner Adult Health
DX: R74.01 Elevation of levels of liver transaminase levels (principal)
CPT/HCPCS: 36415; 80076; 82977; 84078; 86708; 86803; 87340

== ENCOUNTER → 2024-07-15 11:26 | Outpatient (REF) | payer OTHER, SELFPAY ==
[2024-07-15 17:01] LABS: ALT (SGPT) 19 U/L (0-35); AST (SGOT) 31 U/L (14-36); Albumin 4.6 g/dl (3.5-5.0); Alkaline Phosphatase 119 U/L (38-126); Direct Bilirubin 0.3 mg/dl (0.0-0.4); HDL Cholesterol 70 mg/dl; LDL Cholesterol, Calculated 100 mg/dl; Total Bilirubin 0.7 mg/dl (0.2-1.3); Total Cholesterol 200 mg/dl (50-199); Total Protein 7.3 g/dl (6.3-8.2); Triglyceride 150 mg/dl (10-149); Very Low Density Lipoprotein 30 mg/dl (0-30)
[2024-07-15 17:58] LABS: GGTP 71 U/L (12-43)
[2024-07-18 02:12] LABS: ANA, IgG Reflex to HEp-2 None Detected (None Detected)
[2024-07-18 04:23] LABS: Ceruloplasmin 30 mg/dL (16-45)
[2024-07-18 07:24] LABS: Mitochondrial M2 Ab, IgG 5.7 Units (0.0-24.9)
== END ==
LOC: HWRAD 11:26
PROVIDERS: ATTENDING PHYSICIAN Nurse Practitioner Adult Health
DX: R74.01 Elevation of levels of liver transaminase levels (principal)
CPT/HCPCS: 36415; 76700; 80061; 80076; 81256; 82390; 82977; 86038; 86381

== ENCOUNTER → 2025-03-02 13:59 | Outpatient (REF) | payer OTHER, SELFPAY | LOC: HWWDC 13:59 | PROVIDERS: ATTENDING PHYSICIAN Nurse Practitioner Adult Health | DX: Z78.0 Asymptomatic menopausal state (principal); Z12.31 Encounter for screening mammogram for malignant neoplasm of breast | CPT/HCPCS: 77063; 77067; 77080 ==

== ENCOUNTER → 2025-04-12 10:12 | Outpatient (REF) | payer OTHER, SELFPAY ==
[2025-04-12 12:48] LABS: Hematocrit 37.8 % (37.0-47.0); Hemoglobin 12.2 g/dL (12.0-16.0); Mean Corp Hgb Conc. 32.3 g/dL (33.0-37.0); Mean Corpuscular Volume 92.0 fL (81.0-99.0); Nucleated Red Blood Cells % 0 %; Platelet Count 285 10^3/uL (130-400); Red Cell Dist. Width 13.5 % (11.5-14.5)
[2025-04-12 13:06] LABS: ALT (SGPT) 18 U/L (0-35); AST (SGOT) 32 U/L (14-36); Albumin 4.4 g/dl (3.5-5.0); Alkaline Phosphatase 81 U/L (38-126); Blood Urea Nitrogen 19 mg/dl (7-17); Calcium 9.6 mg/dl (8.4-10.2); Carbon Dioxide 26 mmol/L (22-30); Chloride 104 mmol/L (98-107); Glucose 100 mg/dl (70-99); HDL Cholesterol 71 mg/dl; LDL Cholesterol, Calculated 53 mg/dl; Potassium 4.4 mmol/L (3.5-5.1); Sodium 139 mmol/L (135-145); Total Protein 7.6 g/dl (6.3-8.2); Very Low Density Lipoprotein 30 mg/dl (0-30); eGFR 58.39
[2025-04-12 13:19] LABS: Vitamin D, 25-OH*** 52.0 ng/mL (30-80)
[2025-04-12 13:39] LABS: Ferritin 29.3 ng/ml (11.1-264.0)
== END ==
LOC: HWLAB 10:12
PROVIDERS: ATTENDING PHYSICIAN Internal Medicine Cardiovascular Disease; FAMILY PHYSICIAN Nurse Practitioner Adult Health
DX: E78.00 Pure hypercholesterolemia, unspecified (principal); M85.80 Other specified disorders of bone density and structure, unspecified site; D50.9 Iron deficiency anemia, unspecified; Z00.01 Encounter for general adult medical examination with abnormal findings
CPT/HCPCS: 36415; 80053; 80061; 82306; 82728; 84443; 85025